=== PATIENT | male | born 1975 | race Caucasian/White ===

== ENCOUNTER 2018-12-18 00:57 | Emergency (ER) | payer SELFPAY ==
[~2018-12-18] VITALS: Ht 177.8 cm; Wt 93.3 kg
[~2018-12-18 00:57] MED LIST: BEN25 PO
[2018-12-18 01:02] VITALS: BP 142/76; PULSE 95; RESP 16; Ht 177.8 cm; Wt 93.3 kg
== END 2018-12-18 01:59 | disposition left against medical advice (07) ==
LOC: FTE 00:57
DX: Z53.21 Procedure and treatment not carried out due to patient leaving prior to being seen by health care provider (principal)